=== PATIENT | male | born 1995 | race African-American/Black ===

== ENCOUNTER 2020-06-10 11:57 | Emergency (ER) | payer SELFPAY ==
[2020-06-10 12:13] VITALS: BP 120/64; PULSE 74; TEMP 98.1; BMI 20.9
== END 2020-06-10 13:08 | disposition home or self-care (01) ==
LOC: JER 11:57 → JERFT 11:57 → JER 13:08
DX: R23.9 Unspecified skin changes (principal)
CPT/HCPCS: 99283-25